=== PATIENT | male | born 1960 | race Caucasian/White ===

== ENCOUNTER 2018-05-06 07:38 | Day surgery (SDC) | payer MEDICARE ==
[~2018-05-06] VITALS: Ht 193 cm; Wt 150.7 kg
[~2018-05-06 07:38] MED LIST: BUPR150T2; MELA3 PO; MELO7.5 PO; OXYC5 PO; TAMS.4ER PO; TRAM50 PO; TRAZ100 PO
--- NOTE | 2018-05-06 10:59 | NUR ---
05/06/18 Jeronimo9 Orin Batres ICE PACK GIVEN, VERBALIZED UNDERSTANDING OF DISCHARGE INSTRUCTION, POST SURGICAL WOUND CARE, ELEVATING LEG, MEDICATIONS, TO CAR IN WC SON JONATHAN TO DRIVE HOME
== END 2018-05-06 10:50 | disposition home or self-care (01) ==
LOC: ORSCSDS 07:38 → ORD 08:45 → ORSCSDS 08:45
PROVIDERS: Podiatrist Foot & Ankle Surgery
PROC: 0HBLXZX Excision of Left Lower Leg Skin, External Approach, Diagnostic (ICD-10-PCS; principal; 2018-05-06 08:45)
DX: C44.799 Other specified malignant neoplasm of skin of left lower limb, including hip (principal); E66.01 Morbid (severe) obesity due to excess calories; Z68.41 Body mass index [BMI] 40.0-44.9, adult; Z79.899 Other long term (current) drug therapy
CPT/HCPCS: 88305; J0690; J2250; J2405; J3010; J7120

== ENCOUNTER 2020-10-23 13:48 | Day surgery (SDC) | payer MEDICARE ==
[~2020-10-23] VITALS: Ht 193 cm; Wt 153.8 kg
[~2020-10-23 13:48] MED LIST changes: +OXYC5
== END 2020-10-23 15:50 | disposition home or self-care (01) ==
LOC: ORSCSDS 13:48
PROVIDERS: Internal Medicine Gastroenterology
PROC: 0DBK8ZX Excision of Ascending Colon, Via Natural or Artificial Opening Endoscopic, Diagnostic (ICD-10-PCS; principal; 2020-10-23 15:00)
PROC: 0DBM8ZX Excision of Descending Colon, Via Natural or Artificial Opening Endoscopic, Diagnostic (ICD-10-PCS; principal; 2020-10-23 15:00)
PROC: 0DBH8ZX Excision of Cecum, Via Natural or Artificial Opening Endoscopic, Diagnostic (ICD-10-PCS; principal; 2020-10-23 15:00)
DX: Z12.11 Encounter for screening for malignant neoplasm of colon (principal); D12.4 Benign neoplasm of descending colon; D12.2 Benign neoplasm of ascending colon; K57.30 Diverticulosis of large intestine without perforation or abscess without bleeding; G47.33 Obstructive sleep apnea (adult) (pediatric); I10 Essential (primary) hypertension; F43.10 Post-traumatic stress disorder, unspecified; F41.8 Other specified anxiety disorders; D12.0 Benign neoplasm of cecum; E66.01 Morbid (severe) obesity due to excess calories; Z68.41 Body mass index [BMI] 40.0-44.9, adult; Z79.899 Other long term (current) drug therapy
CPT/HCPCS: 88305; J0330; J0461; J2405; J2704; J7120

== ENCOUNTER → 2023-01-22 | Outpatient (CLI) | payer MEDICARE ==
[2023-01-22 18:28] LABS: Adenovirus F 40/41 Not Detected (NOT DETECT); Astrovirus Not Detected (NOT DETECT); Campylobacter Sp Not Detected (NOT DETECT); Cryptosporidium Not Detected (NOT DETECT); Cyclospora Cayetanensis Not Detected (NOT DETECT); E. Coli O157 Not Detected (NOT DETECT); Entamoeba Histolytica Not Detected (NOT DETECT); Enteroaggregative E. coli-EAEC Not Detected (NOT DETECT); Enteropathogenic E. coli-EPEC Not Detected (NOT DETECT); Enterotoxigenic E. coli-ETEC Not Detected (NOT DETECT); Giardia Lamblia Not Detected (NOT DETECT); Norovirus GI/GII Not Detected (NOT DETECT); Plesiomonas Shigelloides Not Detected (NOT DETECT); Rotavirus A Not Detected (NOT DETECT); Salmonella Sp Not Detected (NOT DETECT); Sapovirus Not Detected (NOT DETECT); Shiga Toxin-prod E. coli-STEC Not Detected (NOT DETECT); Shigella/Enteroin E. coli-EIEC Not Detected (NOT DETECT); Vibrio Cholerae Not Detected (NOT DETECT); Vibrio Sp Not Detected (NOT DETECT); Yersinia Enterocolitica Not Detected (NOT DETECT)
== END ==
LOC: LAB 14:35 → LAB SHORT 14:35
PROVIDERS: Nurse Practitioner Family
DX: K59.00 Constipation, unspecified (principal); R19.5 Other fecal abnormalities
CPT/HCPCS: 87507

== ENCOUNTER 2023-10-04 08:30 | Day surgery (SDC) | payer MEDICARE ==
[~2023-10-04] VITALS: Ht 193 cm; Wt 151.0 kg
[~2023-10-04 08:30] MED LIST changes: +Lactated Ringer's 1,000 ML IV SCH
[2023-10-04 10:21] VITALS: BP 133/90
[2023-10-04] MEDS ORDERED: EUTHYROX25 MCG PO (10:32)
[2023-10-04] MEDS ORDERED: LOSA25 PO (10:33)
[2023-10-04] MEDS ORDERED: propofoL 50 ML IV ONE (10:59)
--- NOTE | 2023-10-04 11:07 | NUR ---
10/04/23 1107 Alber Cesar MONITOR INTACT WITH CONTINUOUS PULSE OXIMETRY, CONTINUOUS END TITAL CO2, AND INTERMITTENT BLOOD PRESSURE.AND EKG ANESTHESIA PER Debbie MATTSON LINDERMAN OPERATOR
[2023-10-04 11:34] VITALS: BP 105/65
[2023-10-04 11:43] VITALS: BP 119/76
--- NOTE | 2023-10-04 11:57 | NUR ---
Discharge instructions reviewed with patient. Patient verbalizes understanding. Copy given to patient to take home. Patient States Post-Procedure ride home has been arranged. Discharged via wheelchair to private car for ride home.
== END 2023-10-04 11:55 | disposition home or self-care (01) ==
LOC: ORSCMMR 08:30 → ORD 10:00 → ORSCMMR 11:55
PROVIDERS: Internal Medicine Gastroenterology
PROC: 0DBN8ZX Excision of Sigmoid Colon, Via Natural or Artificial Opening Endoscopic, Diagnostic (ICD-10-PCS; principal; 2023-10-04 10:00)
PROC: 0DBM8ZX Excision of Descending Colon, Via Natural or Artificial Opening Endoscopic, Diagnostic (ICD-10-PCS; principal; 2023-10-04 10:00)
PROC: 0DBP8ZX Excision of Rectum, Via Natural or Artificial Opening Endoscopic, Diagnostic (ICD-10-PCS; principal; 2023-10-04 10:00)
DX: Z12.11 Encounter for screening for malignant neoplasm of colon (principal); D12.5 Benign neoplasm of sigmoid colon; K63.5 Polyp of colon; K62.1 Rectal polyp; K57.30 Diverticulosis of large intestine without perforation or abscess without bleeding; Z86.010 Personal history of colon polyps; I10 Essential (primary) hypertension; E03.9 Hypothyroidism, unspecified; G47.33 Obstructive sleep apnea (adult) (pediatric); E66.01 Morbid (severe) obesity due to excess calories; Z68.41 Body mass index [BMI] 40.0-44.9, adult; Z79.899 Other long term (current) drug therapy
CPT/HCPCS: 88305; J2704; J7120

== ENCOUNTER 2024-02-10 21:28 | Emergency (ER) | payer MEDICARE ==
[~2024-02-10] VITALS: Ht 193 cm; Wt 163.3 kg
[~2024-02-10 21:28] MED LIST changes: +EUTHYROX25 MCG PO; +LOSA25 PO; -Lactated Ringer's 1,000 ML IV SCH
[2024-02-10 21:42] VITALS: BP 140/92
== END 2024-02-10 23:42 ==
LOC: ER 21:28
DX: S46.911A Strain of unspecified muscle, fascia and tendon at shoulder and upper arm level, right arm, initial encounter (principal); I10 Essential (primary) hypertension; E03.9 Hypothyroidism, unspecified; E66.01 Morbid (severe) obesity due to excess calories; W10.1XXA Fall (on)(from) sidewalk curb, initial encounter; Z79.899 Other long term (current) drug therapy
CPT/HCPCS: 73060; 99283-25